=== PATIENT | female | born 1945 | race Caucasian/White ===

== ENCOUNTER → 2016-07-05 | Outpatient (CLI) | payer MEDICARE, BC ==
[2016-07-05 19:54] LABS: FREE T4 1.04 NG/DL (0.76-1.46)
[2016-07-05 20:00] LABS: FOLATE > 24.0 NG/ML (>5.4); VITAMIN B12 LEVEL 647 PG/ML (247-911)
== END ==
LOC: M WUC 17:07
PROVIDERS: ATTEND Family Medicine
DX: R41.3 Other amnesia (principal); R25.2 Cramp and spasm

== ENCOUNTER → 2016-09-03 | Outpatient (REF) | payer MEDICARE, BC | LOC: M LAB REF 18:09 | PROVIDERS: ATTEND Physician Assistant | DX: R30.0 Dysuria (principal) ==

== ENCOUNTER → 2016-09-07 | Outpatient (CLI) | payer MEDICARE, BC ==
[2016-09-07 20:57] LABS: CALCIUM LEVEL 10.2 MG/DL (8.8-10.2); CREATININE FOR GFR 1.73 MG/DL (0.55-1.02); GLOMERULAR FILTRATION RATE 30.7 (>39)
== END ==
LOC: M WUC 18:27
PROVIDERS: ATTEND Internal Medicine Cardiovascular Disease
DX: I48.0 Paroxysmal atrial fibrillation (principal); I10 Essential (primary) hypertension

== ENCOUNTER → 2016-10-13 | Outpatient (REF) | payer MEDICARE, BC ==
[2016-10-13 19:37] LABS: MEAN CORPUSCULAR HEMOGLOBIN 31.6 pg (27.0-33.0); MEAN CORPUSCULAR HGB CONC 33.2 g/dl (32.0-36.5); RED CELL DISTRIBUTION WIDTH 12.5 % (11.5-14.5); WHITE BLOOD COUNT 3.6 K/mm3 (4.0-10.0)
[2016-10-13 19:58] LABS: ALBUMIN 3.8 GM/DL (3.2-5.2); ALBUMIN/GLOBULIN RATIO 1.41 (1.00-1.93); BILIRUBIN,TOTAL 0.8 MG/DL (0.2-1.0); CALCIUM LEVEL 9.2 MG/DL (8.8-10.2); CREATININE FOR GFR 1.43 MG/DL (0.55-1.02); GLOMERULAR FILTRATION RATE 38.3 (>39); POTASSIUM SERUM 4.7 MEQ/L (3.5-5.1); TOTAL PROTEIN 6.5 GM/DL (6.4-8.2)
== END ==
LOC: M SFHCADAM 16:03
PROVIDERS: ATTEND Family Medicine
DX: N18.3 Chronic kidney disease, stage 3 (moderate) (principal); E78.4 Other hyperlipidemia
CPT/HCPCS: 80053; 80061; 82306; 85027; G0463

== ENCOUNTER → 2017-12-13 | Outpatient (CLI) | payer MEDICARE, BC ==
[2017-12-13 17:04] LABS: HEMATOCRIT 40.9 % (36.0-47.0); HEMOGLOBIN 13.4 g/dl (12.0-15.5); MEAN CORPUSCULAR HEMOGLOBIN 30.1 pg (27.0-33.0); MEAN CORPUSCULAR HGB CONC 32.8 g/dl (32.0-36.5); MEAN CORPUSCULAR VOLUME 91.9 fl (80.0-96.0); PLATELET COUNT, AUTOMATED 140 10^3/uL (150-450); RED BLOOD COUNT 4.45 10^6/uL (4.00-5.40); RED CELL DISTRIBUTION WIDTH 12.6 % (11.5-14.5); WHITE BLOOD COUNT 3.5 10^3/uL (4.0-10.0)
[2017-12-13 17:10] LABS: ALBUMIN 3.8 GM/DL (3.2-5.2); ALBUMIN/GLOBULIN RATIO 1.31 (1.00-1.93); ALKALINE PHOSPHATASE 64 U/L (45-117); ALT/SGPT 40 U/L (12-78); ANION GAP 7 MEQ/L (8-16); AST/SGOT 41 U/L (7-37); BILIRUBIN,TOTAL 0.9 MG/DL (0.2-1.0); BLOOD UREA NITROGEN 22 MG/DL (7-18); CALCIUM LEVEL 9.1 MG/DL (8.8-10.2); CARBON DIOXIDE LEVEL 32 MEQ/L (21-32); CHLORIDE LEVEL 106 MEQ/L (98-107); CHOLESTEROL LEVEL 161 MG/DL (<200); CHOLESTEROL RISK RATIO 1.477 (<5); CREATININE FOR GFR 1.64 MG/DL (0.55-1.30); FREE T4 1.04 NG/DL (0.76-1.46); GLOMERULAR FILTRATION RATE 32.6 (>39); GLUCOSE, FASTING 85 MG/DL (70-100); HDL CHOLESTEROL 109 MG/DL (>40); LDL CHOLESTEROL 43.2 MG/DL (<100); NON-HDL-C 52 MG/DL; SODIUM LEVEL 145 MEQ/L (136-145); TOTAL PROTEIN 6.7 GM/DL (6.4-8.2); TRIGLYCERIDES LEVEL 44 MG/DL (<150)
== END ==
LOC: M LAB 15:20
DX: F32.9 Major depressive disorder, single episode, unspecified (principal); E78.4 Other hyperlipidemia; N18.3 Chronic kidney disease, stage 3 (moderate)
CPT/HCPCS: 84443

== ENCOUNTER → 2018-10-10 | Outpatient (CLI) | payer MEDICARE, BC ==
[2018-10-10 20:18] LABS: ALBUMIN 4.2 GM/DL (3.2-5.2); BILIRUBIN,TOTAL 0.7 MG/DL (0.2-1.0); CALCIUM LEVEL 9.8 MG/DL (8.8-10.2); CHOLESTEROL RISK RATIO 1.729 (<5); CREATININE FOR GFR 1.6 MG/DL (0.55-1.30); FREE T4 1.11 NG/DL (0.76-1.46); GLOMERULAR FILTRATION RATE 33.5 (>39); POTASSIUM SERUM 4.8 MEQ/L (3.5-5.1); THYROID STIMULATING HORMONE 1.78 uIU/ML (0.358-3.740); TOTAL PROTEIN 6.7 GM/DL (6.4-8.2)
[2018-10-10 20:24] LABS: HEMATOCRIT 42.5 % (36.0-47.0); MEAN CORPUSCULAR HEMOGLOBIN 31.4 pg (27.0-33.0); MEAN CORPUSCULAR HGB CONC 32.9 g/dl (32.0-36.5); MEAN CORPUSCULAR VOLUME 95.3 fl (80.0-96.0); PLATELET COUNT, AUTOMATED 160 10^3/uL (150-450); RED BLOOD COUNT 4.46 10^6/uL (4.00-5.40); WHITE BLOOD COUNT 4.6 10^3/uL (4.0-10.0)
== END ==
LOC: M WUC 17:34
PROVIDERS: ATTEND Family Medicine
DX: N18.3 Chronic kidney disease, stage 3 (moderate) (principal); I48.0 Paroxysmal atrial fibrillation; I25.10 Atherosclerotic heart disease of native coronary artery without angina pectoris

== ENCOUNTER 2019-01-02 11:24 | Day surgery (SDC) | payer MEDICARE, BC ==
[~2019-01-02] VITALS: Ht 162.6 cm; Wt 51.9 kg
[~2019-01-02 11:24] MED LIST: AMLO5TAB6 PO; BIOT1CAP2 PO; CALCCAP4 PO; COQ-100C5 PO; CORE10CA PO; LOSA50TA88 PO; MULTCAP PO; NITR0.4S14 SL; NS 1,000 ML IV ONE; SERT-138 PO; SIMV40TA2 PO; TRAZ-189 PO; XARE10TA PO
[2019-01-02] MEDS ORDERED: LABETALOL HCL 100 MG/20 ML VIAL As Ordered ONE (12:41)
[2019-01-02] MEDS ORDERED: PROPOFOL 200 MG/20 ML VIAL As Ordered ONE (12:41)
--- NOTE | 2019-01-02 13:01 | ROOR ---
Patient Name: Katja Mcghee Procedure Date: 01/02/2019 12:29 PM Date of : 1945 Age: 73 Room: [facility] [place] Gender: Female Note Status: Finalized Procedure: Total Colonoscopy to Cecum + Cold Snare/Biopsy Polypectomy + Hemoclip Indications: High risk colon cancer surveillance: Personal history of colonic polyps Providers: Mahendra Ross MD Referring MD: Rodger Nava MD Requesting Provider: Medicines: Monitored Anesthesia Care Complications: No immediate complications. Procedure: Pre-Anesthesia Assessment: - The heart rate, respiratory rate, oxygen saturations, blood pressure, adequacy of pulmonary ventilation, and response to care were monitored throughout the procedure. The Colonoscope was introduced through the anus and advanced to the cecum, identified by appendiceal orifice and ileocecal valve. The colonoscopy was performed without difficulty. The patient tolerated the procedure well. The quality of the bowel preparation was good. Findings: The perianal and digital rectal examinations were normal. Non-bleeding internal hemorrhoids were found during retroflexion. The hemorrhoids were small and Grade I (internal hemorrhoids that do not prolapse). Multiple small and large-mouthed diverticula were found in the recto-sigmoid colon, sigmoid colon and descending colon. Multiple sessile polyps were found in the ascending colon. The polyps were small in size. These polyps were removed with a jumbo cold forceps. Resection and retrieval were complete. Multiple sessile polyps were found at 60 cm proximal to the anus. The polyps were small in size. These polyps were removed with a jumbo cold forceps. Resection and retrieval were complete. A small polyp was found at 20 cm proximal to the anus. The polyp was sessile. The polyp was removed with a cold snare. Resection and retrieval were complete. To prevent bleeding post-intervention, one hemostatic clip was successfully placed (MR conditional). There was no bleeding at the end of the procedure. The exam was otherwise without abnormality on direct and retroflexion views. Impression: - Non-bleeding internal hemorrhoids. - Diverticulosis in the recto-sigmoid colon, in the sigmoid colon and in the descending colon. - Multiple small polyps in the ascending colon, removed with a jumbo cold forceps. Resected and retrieved. - Multiple small polyps at 60 cm proximal to the anus, removed with a jumbo cold forceps. Resected and retrieved. - One small polyp at 20 cm proximal to the anus, removed with a cold snare. Resected and retrieved. Clip (MR conditional) was placed. - The examination was otherwise normal on direct and retroflexion views. - The exam was otherwise normal to the cecum. Recommendation: - Patient has a contact number available for emergencies. The signs and symptoms of potential delayed complications were discussed with the patient. Return to normal activities tomorrow. Written discharge instructions were provided to the patient. - High fiber diet. - Discharge patient to home. - Continue present medications. - Await pathology results. - Telephone GI clinic for pathology results in 1 week. - Repeat colonoscopy for symptoms only. - Return to referring physician. - The findings and recommendations were discussed with the patient's family. Mahendra Ross MD Mahendra Ross MD 01/02/2019 1:00:58 PM Electronically signed by Mahendra Ross MD Number of Addenda: 0 Note Initiated On: 01/02/2019 12:29 PM Estimated Blood Loss: Estimated blood loss: none.
[2019-01-02 13:36] VITALS: BP 110/71
== END 2019-01-02 13:37 | disposition home or self-care (01) ==
LOC: M OPP 11:24
PROVIDERS: ATTEND Internal Medicine Gastroenterology
DX: Z12.11 Encounter for screening for malignant neoplasm of colon (principal); Z86.010 Personal history of colon polyps; K64.0 First degree hemorrhoids; D12.2 Benign neoplasm of ascending colon; K57.30 Diverticulosis of large intestine without perforation or abscess without bleeding; K63.5 Polyp of colon; I48.91 Unspecified atrial fibrillation; I25.2 Old myocardial infarction; Z79.899 Other long term (current) drug therapy; Z88.8 Allergy status to other drugs, medicaments and biological substances; Z95.5 Presence of coronary angioplasty implant and graft

== ENCOUNTER → 2019-03-16 | Outpatient (CLI) | payer MEDICARE, BC ==
[~2019-03-16] MED LIST changes: -NS 1,000 ML IV ONE
[2019-03-16 17:51] LABS: CALCIUM LEVEL 8.9 MG/DL (8.8-10.2); CREATININE FOR GFR 1.57 MG/DL (0.55-1.30); GLOMERULAR FILTRATION RATE 34.2 (>39); POTASSIUM SERUM 4.2 MEQ/L (3.5-5.1)
[2019-03-16 18:08] LABS: HEMOGLOBIN A1c 5.6 %
== END ==
LOC: M WUC 15:37
PROVIDERS: ATTEND Family Medicine
DX: R73.9 Hyperglycemia, unspecified (principal)

== ENCOUNTER → 2019-10-17 | Outpatient (REF) | payer MEDICARE, BC ==
[~2019-10-17] MED LIST changes: -SIMV40TA2 PO; +SIMV40TA20 PO
[2019-10-17 17:42] LABS: HEMATOCRIT 41.2 % (36.0-47.0); HEMOGLOBIN 13.6 g/dl (12.0-15.5); MEAN CORPUSCULAR HEMOGLOBIN 30.9 pg (27.0-33.0); MEAN CORPUSCULAR VOLUME 93.6 fl (80.0-96.0); PLATELET COUNT, AUTOMATED 142 10^3/uL (150-450); WHITE BLOOD COUNT 5.4 10^3/uL (4.0-10.0)
[2019-10-17 18:03] LABS: BILIRUBIN,TOTAL 0.6 MG/DL (0.2-1.0); CALCIUM LEVEL 9.5 MG/DL (8.8-10.2); CHOLESTEROL RISK RATIO 1.69 (<5); CREATININE FOR GFR 1.31 MG/DL (0.55-1.30); POTASSIUM SERUM 4.4 MEQ/L (3.5-5.1); TOTAL PROTEIN 6.8 GM/DL (6.4-8.2)
[2019-10-17 18:31] LABS: HEMOGLOBIN A1c 5.7 %
== END ==
LOC: M SFHCADAM 16:38
PROVIDERS: ATTEND Family Medicine
DX: R73.03 Prediabetes (principal); I48.0 Paroxysmal atrial fibrillation; N18.3 Chronic kidney disease, stage 3 (moderate); F32.9 Major depressive disorder, single episode, unspecified; I11.9 Hypertensive heart disease without heart failure; I25.10 Atherosclerotic heart disease of native coronary artery without angina pectoris

== ENCOUNTER 2019-12-22 20:30 | Emergency (ER) | payer MEDICARE, BC ==
[~2019-12-22 20:30] MED LIST changes: +AMLO1TAB24 PO; -AMLO5TAB6 PO; +LIDOCAINE 4% CREAM 5GM (LMX4) As Ordered ONE; +LIDOCAINE 4% CREAM 5GM (LMX4) ONE
== END 2019-12-22 21:05 | disposition home or self-care (01) ==
LOC: M ED 20:30
DX: S49.91XA Unspecified injury of right shoulder and upper arm, initial encounter (principal); W01.0XXA Fall on same level from slipping, tripping and stumbling without subsequent striking against object, initial encounter; Y92.019 Unspecified place in single-family (private) house as the place of occurrence of the external cause; I12.9 Hypertensive chronic kidney disease with stage 1 through stage 4 chronic kidney disease, or unspecified chronic kidney disease; E78.5 Hyperlipidemia, unspecified; Z88.8 Allergy status to other drugs, medicaments and biological substances; Z79.899 Other long term (current) drug therapy

== ENCOUNTER → 2020-10-12 | Outpatient (CLI) | payer MEDICARE, BC ==
[~2020-10-12] MED LIST changes: -LIDOCAINE 4% CREAM 5GM (LMX4) As Ordered ONE; -LIDOCAINE 4% CREAM 5GM (LMX4) ONE
[2020-10-12 15:50] LABS: HEMATOCRIT 39.9 % (36.0-47.0); HEMOGLOBIN 12.8 g/dl (12.0-15.5); MEAN CORPUSCULAR HEMOGLOBIN 30.5 pg (27.0-33.0); MEAN CORPUSCULAR HGB CONC 32.1 g/dl (32.0-36.5); PLATELET COUNT, AUTOMATED 127 10^3/uL (150-450); WHITE BLOOD COUNT 3.9 10^3/uL (4.0-10.0)
[2020-10-12 16:27] LABS: ALBUMIN 3.6 GM/DL (3.2-5.2); BILIRUBIN,TOTAL 0.7 MG/DL (0.2-1.0); CALCIUM LEVEL 8.8 MG/DL (8.8-10.2); CHOLESTEROL RISK RATIO 1.591 (<5); CREATININE FOR GFR 1.17 MG/DL (0.55-1.30); FREE T4 0.95 NG/DL (0.76-1.46); GLOMERULAR FILTRATION RATE 47.7 (>39); POTASSIUM SERUM 4.5 MEQ/L (3.5-5.1); THYROID STIMULATING HORMONE 0.993 uIU/ML (0.358-3.740); TOTAL PROTEIN 6.1 GM/DL (6.4-8.2)
== END ==
LOC: M LAB 15:28
PROVIDERS: ATTEND Family Medicine
DX: I48.0 Paroxysmal atrial fibrillation (principal); F43.23 Adjustment disorder with mixed anxiety and depressed mood; N18.32 Chronic kidney disease, stage 3b; E78.49 Other hyperlipidemia; I11.9 Hypertensive heart disease without heart failure

== ENCOUNTER → 2021-01-22 | Outpatient (REF) | payer MEDICARE, BC | LOC: M SFHCADAM 16:12 | PROVIDERS: ATTEND Family Medicine | DX: J34.89 Other specified disorders of nose and nasal sinuses (principal) | CPT/HCPCS: 87426; G0463; U0003 ==

== ENCOUNTER → 2021-03-26 | Outpatient (REF) | payer MEDICARE, BC | LOC: M LAB REF 17:12 | PROVIDERS: ATTEND Nurse Practitioner Family | DX: E83.42 Hypomagnesemia (principal) ==

== ENCOUNTER → 2021-11-18 | Outpatient (REF) | payer MEDICARE, BC ==
[~2021-11-18] MED LIST changes: +LOSA50TA28 PO; -LOSA50TA88 PO
[2021-11-18 13:38] LABS: HEMATOCRIT 44.6 % (36.0-47.0); HEMOGLOBIN 15.4 g/dl (12.0-15.5); MEAN CORPUSCULAR HEMOGLOBIN 33.6 pg (27.0-33.0); MEAN CORPUSCULAR HGB CONC 34.5 g/dl (32.0-36.5); MEAN CORPUSCULAR VOLUME 97.2 fl (80.0-96.0); PLATELET COUNT, AUTOMATED 181 10^3/uL (150-450); RED BLOOD COUNT 4.59 10^6/uL (4.00-5.40); WHITE BLOOD COUNT 6.8 10^3/uL (4.0-10.0)
[2021-11-18 14:10] LABS: ALBUMIN 4.1 GM/DL (3.2-5.2); BILIRUBIN,TOTAL 1.1 MG/DL (0.2-1.0); CALCIUM LEVEL 10.1 MG/DL (8.8-10.2); CHOLESTEROL RISK RATIO 2.161 (<5); CREATININE FOR GFR 1.45 MG/DL (0.55-1.30); FREE T4 1.12 NG/DL (0.76-1.46); GLOMERULAR FILTRATION RATE 37.2 (>39); POTASSIUM SERUM 4.3 MEQ/L (3.5-5.1); THYROID STIMULATING HORMONE 1.65 uIU/ML (0.358-3.740); TOTAL PROTEIN 6.8 GM/DL (6.4-8.2)
== END ==
LOC: M SFHCADAM 12:26 → M LABWUC 12:26
PROVIDERS: ATTEND Family Medicine
DX: I11.9 Hypertensive heart disease without heart failure (principal); F43.23 Adjustment disorder with mixed anxiety and depressed mood; I25.10 Atherosclerotic heart disease of native coronary artery without angina pectoris; I48.0 Paroxysmal atrial fibrillation; N18.32 Chronic kidney disease, stage 3b; E78.49 Other hyperlipidemia

== ENCOUNTER → 2021-12-07 | Outpatient (CLI) | payer MEDICARE, BC ==
[2021-12-07 14:59] LABS: FOLATE 18.1 NG/ML
== END ==
LOC: M PLAIMG 09:34
PROVIDERS: ATTEND Family Medicine
DX: R53.1 Weakness (principal); N18.32 Chronic kidney disease, stage 3b; R90.82 White matter disease, unspecified; G31.9 Degenerative disease of nervous system, unspecified

== ENCOUNTER → 2022-06-03 | Outpatient (REF) | payer MEDICARE, BC ==
[2022-06-03 17:59] LABS: HEMATOCRIT 41.9 % (36.0-47.0); HEMOGLOBIN 13.9 g/dl (12.0-15.5); MEAN CORPUSCULAR HEMOGLOBIN 32.1 pg (27.0-33.0); MEAN CORPUSCULAR HGB CONC 33.2 g/dl (32.0-36.5); MEAN CORPUSCULAR VOLUME 96.8 fl (80.0-96.0); PLATELET COUNT, AUTOMATED 159 10^3/uL (150-450); RED BLOOD COUNT 4.33 10^6/uL (4.00-5.40); WHITE BLOOD COUNT 3.3 10^3/uL (4.0-10.0)
[2022-06-03 18:24] LABS: CALCIUM LEVEL 9.1 MG/DL (8.3-10.6); CREATININE FOR GFR 1.09 MG/DL (0.55-1.30); GLOMERULAR FILTRATION RATE 51.7 (>39); POTASSIUM SERUM 4.7 MMOL/L (3.5-5.1)
== END ==
LOC: M LABWUC 16:13
PROVIDERS: ATTEND Nurse Practitioner Family
DX: I48.0 Paroxysmal atrial fibrillation (principal)

== ENCOUNTER → 2022-08-24 | Outpatient (CLI) | payer MEDICARE, BC | LOC: M ADAMS 15:09 | PROVIDERS: ATTEND Physician Assistant | DX: M16.11 Unilateral primary osteoarthritis, right hip (principal); M41.26 Other idiopathic scoliosis, lumbar region; M41.24 Other idiopathic scoliosis, thoracic region; R06.09 Other forms of dyspnea ==

== ENCOUNTER → 2022-09-23 | Outpatient (CLI) | payer MEDICARE, BC | LOC: M WHC 13:35 | PROVIDERS: ATTEND Physician Assistant | DX: M81.0 Age-related osteoporosis without current pathological fracture (principal) ==

== ENCOUNTER 2022-10-21 00:36 | Emergency (ER) | payer MEDICARE, BC ==
[~2022-10-21] VITALS: Ht 165.1 cm; Wt 50.2 kg
[2022-10-21 00:37] VITALS: BP 146/90; TEMP 98.1; O2SAT 95
== END 2022-10-21 04:47 | disposition home or self-care (01) ==
LOC: M ED 00:36
DX: S52.501A Unspecified fracture of the lower end of right radius, initial encounter for closed fracture (principal); W19.XXXA Unspecified fall, initial encounter; Y92.009 Unspecified place in unspecified non-institutional (private) residence as the place of occurrence of the external cause; Z79.899 Other long term (current) drug therapy; Z88.8 Allergy status to other drugs, medicaments and biological substances

== ENCOUNTER → 2022-12-07 | Outpatient (CLI) | payer MEDICARE, BC ==
[2022-12-07 12:43] LABS: HEMOGLOBIN 13.7 g/dl (12.0-15.5); MEAN CORPUSCULAR HEMOGLOBIN 33.8 pg (27.0-33.0); MEAN CORPUSCULAR HGB CONC 35.1 g/dl (32.0-36.5); MEAN CORPUSCULAR VOLUME 96.3 fl (80.0-96.0); PLATELET COUNT, AUTOMATED 147 10^3/uL (150-450); RED BLOOD COUNT 4.05 10^6/uL (4.00-5.40); WHITE BLOOD COUNT 5.1 10^3/uL (4.0-10.0)
[2022-12-07 13:10] LABS: ALBUMIN 3.7 G/DL (3.2-5.2); BILIRUBIN,TOTAL 1.2 MG/DL (0.3-1.2); CALCIUM LEVEL 9.4 MG/DL (8.3-10.6); CHOLESTEROL RISK RATIO 2.27 (<5); CREATININE FOR GFR 1.2 MG/DL (0.55-1.30); GLOMERULAR FILTRATION RATE 46.1 (>39); HDL CHOLESTEROL 69.5 MG/DL (>40); LDL CHOLESTEROL 71.7 MG/DL (<100); NON-HDL-C 88.5 MG/DL; POTASSIUM SERUM 4.6 MMOL/L (3.5-5.1); PTH INTACT 87.1 PG/ML (18.5-88.0); THYROID STIMULATING HORMONE 0.918 uIU/ML (0.55-4.78); TOTAL PROTEIN 6.1 G/DL (5.7-8.2)
[2022-12-07 13:11] LABS: TOTAL 25(OH) VITAMIN D 41.6 NG/ML (20.0-100.0)
== END ==
LOC: M WUC 09:18
PROVIDERS: ATTEND Family Medicine
DX: J20.9 Acute bronchitis, unspecified (principal); N18.32 Chronic kidney disease, stage 3b; I25.10 Atherosclerotic heart disease of native coronary artery without angina pectoris; M81.0 Age-related osteoporosis without current pathological fracture; I48.0 Paroxysmal atrial fibrillation

== ENCOUNTER 2023-02-09 15:26 | Inpatient (IN) | payer MEDICARE, BC ==
[~2023-02-09] VITALS: Ht 154.9 cm; Wt 52.7 kg
[~2023-02-09 15:26] MED LIST changes: +BUSP15TA47 PO; +HYDR25OI TOP; +UBIQ200C4 PO; +VITMTA PO; +ZOLO100T PO
[2023-02-09] MEDS ORDERED: oxyCODONE 5MG TAB PO PRN ×2 (15:50)
[2023-02-09] MEDS ORDERED: NITROGLYCERIN 0.4MG SUBL TABLET SL PRN (15:50)
[2023-02-09 16:07] VITALS: BP 98/56; TEMP 98; O2SAT 92
[2023-02-09] MEDS: ACETAMINOPHEN TAB 650MG DOSE (2X325MG) PO SCH (17:48)
[2023-02-09 19:20] VITALS: BP 129/59; TEMP 98.4; O2SAT 94
[2023-02-09] MEDS: traZODone 50 MG TAB PO SCH (21:00)
[2023-02-09] MEDS: SENNA 8.6 MG TAB (SENOKOT) PO SCH (21:13)
[2023-02-09] MEDS: CARVedilol 3.125 MG TAB PO SCH (21:13)
[2023-02-10] MEDS: ACETAMINOPHEN TAB 650MG DOSE (2X325MG) PO SCH ×4 (05:25→17:33)
[2023-02-10 06:00] VITALS: BP 107/61; TEMP 98.5; O2SAT 96
[2023-02-10 07:34] LABS: HEMATOCRIT 38.3 % (36.0-47.0); HEMOGLOBIN 12.5 g/dl (12.0-15.5); MEAN CORPUSCULAR HEMOGLOBIN 30.4 pg (27.0-33.0); MEAN CORPUSCULAR HGB CONC 32.6 g/dl (32.0-36.5); MEAN CORPUSCULAR VOLUME 93.2 fl (80.0-96.0); PLATELET COUNT, AUTOMATED 82 10^3/uL (150-450); RED BLOOD COUNT 4.11 10^6/uL (4.00-5.40); WHITE BLOOD COUNT 7.9 10^3/uL (4.0-10.0)
[2023-02-10] MEDS: MIRALAX *UNIT DOSE* 17GM PACKET PO SCH (09:00)
[2023-02-10] MEDS ORDERED: SIMVASTATIN 40 MG TAB PO SCH (09:00)
[2023-02-10] MEDS: SERTRALINE 100 MG TAB PO SCH (10:16)
[2023-02-10] MEDS: MULTIVITAMINS/MINERALS THERAP 1 TAB PO SCH (10:16)
[2023-02-10] MEDS: busPIRone 5 MG TAB PO SCH (10:17)
[2023-02-10] MEDS: CARVedilol 3.125 MG TAB PO SCH ×2 (10:17→21:00)
[2023-02-10] MEDS: amLODIPine 5 MG TAB PO SCH (10:18)
[2023-02-10 14:00] VITALS: BP 96/51; TEMP 99; O2SAT 97
[2023-02-10] MEDS ORDERED: methocarbamoL 500 MG TAB PO SCH (16:00)
[2023-02-10] MEDS: RIVAROXABAN 15MG TAB (XARELTO) PO SCH (17:30)
[2023-02-10] MEDS: guaiFENesin ER TABLET 600 MG TAB PO SCH ×2 (17:30→20:49)
[2023-02-10] MEDS: CYCLOBENZAPRINE 5MG TABLET PO SCH ×2 (17:31→20:49)
[2023-02-10 17:56] VITALS: O2SAT 97
[2023-02-10 20:00] VITALS: BP 109/57; TEMP 97.2; O2SAT 97
[2023-02-10] MEDS: SENNA 8.6 MG TAB (SENOKOT) PO SCH (20:49)
[2023-02-10] MEDS: traZODone 50 MG TAB PO SCH (21:00)
[2023-02-11] MEDS: ACETAMINOPHEN TAB 650MG DOSE (2X325MG) PO SCH ×4 (05:31→17:29)
[2023-02-11 06:00] VITALS: BP 141/67; TEMP 98.1; O2SAT 99
[2023-02-11] MEDS: SERTRALINE 100 MG TAB PO SCH (07:38)
[2023-02-11] MEDS: busPIRone 5 MG TAB PO SCH (07:39)
[2023-02-11] MEDS: guaiFENesin ER TABLET 600 MG TAB PO SCH ×2 (07:39→20:32)
[2023-02-11] MEDS: CYCLOBENZAPRINE 5MG TABLET PO SCH ×3 (07:39→20:31)
[2023-02-11] MEDS: MULTIVITAMINS/MINERALS THERAP 1 TAB PO SCH (07:39)
[2023-02-11] MEDS: MIRALAX *UNIT DOSE* 17GM PACKET PO SCH (07:40)
[2023-02-11] MEDS: CARVedilol 3.125 MG TAB PO SCH ×2 (07:40→20:32)
[2023-02-11] MEDS: amLODIPine 5 MG TAB PO SCH (07:40)
[2023-02-11 08:05] LABS: HEMATOCRIT 34.4 % (36.0-47.0); HEMOGLOBIN 11.5 g/dl (12.0-15.5); MEAN CORPUSCULAR HEMOGLOBIN 32.4 pg (27.0-33.0); MEAN CORPUSCULAR HGB CONC 33.4 g/dl (32.0-36.5); MEAN CORPUSCULAR VOLUME 96.9 fl (80.0-96.0); RED BLOOD COUNT 3.55 10^6/uL (4.00-5.40); WHITE BLOOD COUNT 5.9 10^3/uL (4.0-10.0)
[2023-02-11 08:11] LABS: PLATELET COUNT, AUTOMATED 87 10^3/uL (150-450)
[2023-02-11 08:25] LABS: BLOOD UREA NITROGEN 29 MG/DL (9-23); CALCIUM LEVEL 7.9 MG/DL (8.3-10.6); CARBON DIOXIDE LEVEL 31 MMOL/L (20-31); CHLORIDE LEVEL 105 MMOL/L (98-107); CREATININE FOR GFR 0.93 MG/DL (0.55-1.30); GLOMERULAR FILTRATION RATE > 60.0 (>39); GLUCOSE, FASTING 88 MG/DL (74-106); POTASSIUM SERUM 4.2 MMOL/L (3.5-5.1); SODIUM LEVEL 141 MMOL/L (136-145)
[2023-02-11] MEDS: RIVAROXABAN 15MG TAB (XARELTO) PO SCH (17:29)
[2023-02-11 20:00] VITALS: BP 122/65; TEMP 98.7; O2SAT 93
[2023-02-11] MEDS: traZODone 50 MG TAB PO SCH (20:31)
[2023-02-11] MEDS: SENNA 8.6 MG TAB (SENOKOT) PO SCH (20:31)
[2023-02-11] MEDS: SIMVASTATIN 40 MG TAB PO SCH (20:31)
[2023-02-12 06:00] VITALS: BP 129/66; TEMP 98.3; O2SAT 100
[2023-02-12] MEDS: ACETAMINOPHEN TAB 650MG DOSE (2X325MG) PO SCH ×4 (06:00→17:14)
[2023-02-12] MEDS: busPIRone 5 MG TAB PO SCH (08:18)
[2023-02-12] MEDS: MULTIVITAMINS/MINERALS THERAP 1 TAB PO SCH (08:18)
[2023-02-12] MEDS: CARVedilol 3.125 MG TAB PO SCH ×2 (08:18→20:52)
[2023-02-12] MEDS: guaiFENesin ER TABLET 600 MG TAB PO SCH ×2 (08:18→20:52)
[2023-02-12] MEDS: SERTRALINE 100 MG TAB PO SCH (08:18)
[2023-02-12] MEDS: amLODIPine 5 MG TAB PO SCH (08:19)
[2023-02-12] MEDS: MIRALAX *UNIT DOSE* 17GM PACKET PO SCH (08:19)
[2023-02-12] MEDS: CYCLOBENZAPRINE 5MG TABLET PO SCH ×3 (08:19→20:50)
[2023-02-12 14:00] VITALS: BP 129/69; TEMP 98.9; O2SAT 96
[2023-02-12] MEDS: RIVAROXABAN 15MG TAB (XARELTO) PO SCH (17:14)
[2023-02-12 20:00] VITALS: BP 118/74; TEMP 98.5; O2SAT 98
[2023-02-12] MEDS: SENNA 8.6 MG TAB (SENOKOT) PO SCH (20:50)
[2023-02-12] MEDS: SIMVASTATIN 40 MG TAB PO SCH (20:51)
[2023-02-12] MEDS: traZODone 50 MG TAB PO SCH (20:52)
[2023-02-13 06:00] VITALS: BP 140/73; TEMP 97.8; O2SAT 98
[2023-02-13] MEDS: ACETAMINOPHEN TAB 650MG DOSE (2X325MG) PO SCH ×4 (06:00→17:46)
[2023-02-13 06:15] LABS: HEMOGLOBIN 11.2 g/dl (12.0-15.5); MEAN CORPUSCULAR HEMOGLOBIN 32.4 pg (27.0-33.0); MEAN CORPUSCULAR HGB CONC 32.9 g/dl (32.0-36.5); MEAN CORPUSCULAR VOLUME 98.3 fl (80.0-96.0); PLATELET COUNT, AUTOMATED 122 10^3/uL (150-450); RED BLOOD COUNT 3.46 10^6/uL (4.00-5.40); WHITE BLOOD COUNT 4.3 10^3/uL (4.0-10.0)
[2023-02-13 06:45] LABS: BLOOD UREA NITROGEN 25 MG/DL (9-23); CALCIUM LEVEL 8.7 MG/DL (8.3-10.6); CARBON DIOXIDE LEVEL 30 MMOL/L (20-31); CHLORIDE LEVEL 104 MMOL/L (98-107); CREATININE FOR GFR 0.93 MG/DL (0.55-1.30); GLOMERULAR FILTRATION RATE > 60.0 (>39); GLUCOSE, FASTING 91 MG/DL (74-106); POTASSIUM SERUM 5.2 MMOL/L (3.5-5.1); SODIUM LEVEL 139 MMOL/L (136-145)
[2023-02-13] MEDS: CYCLOBENZAPRINE 5MG TABLET PO SCH ×3 (07:33→20:46)
[2023-02-13] MEDS: amLODIPine 5 MG TAB PO SCH (07:33)
[2023-02-13] MEDS: MULTIVITAMINS/MINERALS THERAP 1 TAB PO SCH (07:33)
[2023-02-13] MEDS: SERTRALINE 100 MG TAB PO SCH (07:33)
[2023-02-13] MEDS: busPIRone 5 MG TAB PO SCH (07:33)
[2023-02-13] MEDS: guaiFENesin ER TABLET 600 MG TAB PO SCH ×2 (07:33→20:46)
[2023-02-13] MEDS: CARVedilol 3.125 MG TAB PO SCH ×2 (07:34→20:46)
[2023-02-13] MEDS: MIRALAX *UNIT DOSE* 17GM PACKET PO SCH (07:35)
[2023-02-13 14:00] VITALS: BP 142/69; TEMP 99; O2SAT 100
[2023-02-13] MEDS: RIVAROXABAN 15MG TAB (XARELTO) PO SCH (17:45)
[2023-02-13 19:32] VITALS: BP 143/65; TEMP 100; O2SAT 97
[2023-02-13] MEDS: traZODone 50 MG TAB PO SCH (20:46)
[2023-02-13] MEDS: SIMVASTATIN 40 MG TAB PO SCH (20:46)
[2023-02-13] MEDS: SENNA 8.6 MG TAB (SENOKOT) PO SCH (20:46)
[2023-02-13 21:00] VITALS: TEMP 98
[2023-02-14 05:12] VITALS: BP 152/88; TEMP 97.8; O2SAT 98
[2023-02-14] MEDS: ACETAMINOPHEN TAB 650MG DOSE (2X325MG) PO SCH ×4 (06:34→16:44)
[2023-02-14] MEDS: MIRALAX *UNIT DOSE* 17GM PACKET PO SCH (06:58)
[2023-02-14] MEDS: MULTIVITAMINS/MINERALS THERAP 1 TAB PO SCH (07:04)
[2023-02-14] MEDS: CYCLOBENZAPRINE 5MG TABLET PO SCH ×2 (07:04→16:43)
[2023-02-14] MEDS: guaiFENesin ER TABLET 600 MG TAB PO SCH ×2 (07:04→20:08)
[2023-02-14] MEDS: SERTRALINE 100 MG TAB PO SCH (07:04)
[2023-02-14] MEDS: amLODIPine 5 MG TAB PO SCH (07:04)
[2023-02-14] MEDS: CARVedilol 3.125 MG TAB PO SCH ×2 (07:04→20:08)
[2023-02-14] MEDS: busPIRone 5 MG TAB PO SCH (07:04)
[2023-02-14 14:00] VITALS: BP 135/85; TEMP 98.6; O2SAT 94
[2023-02-14] MEDS: RIVAROXABAN 15MG TAB (XARELTO) PO SCH (18:22)
[2023-02-14] MEDS ORDERED: LACTULOSE 20GM/30ML SYRUP UDC PO ONE (19:00)
[2023-02-14 20:00] VITALS: BP 118/68; TEMP 98.2; O2SAT 97
[2023-02-14] MEDS: traZODone 50 MG TAB PO SCH (20:07)
[2023-02-14] MEDS: SIMVASTATIN 40 MG TAB PO SCH (20:07)
[2023-02-14] MEDS: SENNA 8.6 MG TAB (SENOKOT) PO SCH (20:07)
[2023-02-14] MEDS: BACLOFEN 5MG PER 1/2 TABLET PO SCH (20:07)
[2023-02-15] MEDS: ACETAMINOPHEN TAB 650MG DOSE (2X325MG) PO SCH ×4 (05:27→18:13)
[2023-02-15 06:00] VITALS: BP 146/82; TEMP 98.7; O2SAT 95
[2023-02-15] MEDS: MIRALAX *UNIT DOSE* 17GM PACKET PO SCH (09:04)
[2023-02-15] MEDS: guaiFENesin ER TABLET 600 MG TAB PO SCH ×2 (09:06→20:20)
[2023-02-15] MEDS: MULTIVITAMINS/MINERALS THERAP 1 TAB PO SCH (09:06)
[2023-02-15] MEDS: busPIRone 5 MG TAB PO SCH (09:06)
[2023-02-15] MEDS: amLODIPine 5 MG TAB PO SCH (09:08)
[2023-02-15] MEDS: CARVedilol 3.125 MG TAB PO SCH ×2 (09:08→20:19)
[2023-02-15] MEDS: BACLOFEN 5MG PER 1/2 TABLET PO SCH ×2 (09:08→20:20)
[2023-02-15] MEDS: SERTRALINE 100 MG TAB PO SCH (09:08)
[2023-02-15 14:00] VITALS: BP 142/63; TEMP 98; O2SAT 100
[2023-02-15] MEDS: RIVAROXABAN 15MG TAB (XARELTO) PO SCH (18:12)
[2023-02-15 20:00] VITALS: BP 150/73; TEMP 98.3; O2SAT 97
[2023-02-15] MEDS: SENNA 8.6 MG TAB (SENOKOT) PO SCH (20:20)
[2023-02-15] MEDS: traZODone 50 MG TAB PO SCH (20:20)
[2023-02-15] MEDS: SIMVASTATIN 40 MG TAB PO SCH (20:20)
[2023-02-16 06:00] VITALS: BP 156/87; TEMP 97.2; O2SAT 92
[2023-02-16] MEDS: ACETAMINOPHEN TAB 650MG DOSE (2X325MG) PO SCH ×4 (06:39→18:10)
[2023-02-16 08:12] LABS: HEMATOCRIT 34.5 % (36.0-47.0); HEMOGLOBIN 11.9 g/dl (12.0-15.5); MEAN CORPUSCULAR HEMOGLOBIN 33.1 pg (27.0-33.0); MEAN CORPUSCULAR HGB CONC 34.5 g/dl (32.0-36.5); MEAN CORPUSCULAR VOLUME 96.1 fl (80.0-96.0); PLATELET COUNT, AUTOMATED 184 10^3/uL (150-450); RED BLOOD COUNT 3.59 10^6/uL (4.00-5.40); WHITE BLOOD COUNT 4.7 10^3/uL (4.0-10.0)
[2023-02-16 08:34] LABS: CREATININE FOR GFR 0.96 MG/DL (0.55-1.30); GLOMERULAR FILTRATION RATE 59.7 (>39); MAGNESIUM LEVEL 2.1 MG/DL (1.8-2.4); POTASSIUM SERUM 4.6 MMOL/L (3.5-5.1)
[2023-02-16] MEDS: guaiFENesin ER TABLET 600 MG TAB PO SCH (08:34)
[2023-02-16] MEDS: SERTRALINE 100 MG TAB PO SCH (08:34)
[2023-02-16] MEDS: MULTIVITAMINS/MINERALS THERAP 1 TAB PO SCH (08:34)
[2023-02-16] MEDS: MIRALAX *UNIT DOSE* 17GM PACKET PO SCH (08:34)
[2023-02-16] MEDS: BACLOFEN 5MG PER 1/2 TABLET PO SCH ×3 (08:36→20:21)
[2023-02-16] MEDS: busPIRone 5 MG TAB PO SCH (08:36)
[2023-02-16] MEDS: CARVedilol 3.125 MG TAB PO SCH ×2 (08:37→20:22)
[2023-02-16] MEDS: amLODIPine 5 MG TAB PO SCH (08:37)
[2023-02-16 14:00] VITALS: BP 121/67; TEMP 98.6; O2SAT 94
[2023-02-16] MEDS: RIVAROXABAN 15MG TAB (XARELTO) PO SCH (18:10)
[2023-02-16 20:00] VITALS: BP 134/74; TEMP 97.9; O2SAT 95
[2023-02-16] MEDS: traZODone 50 MG TAB PO SCH (20:21)
[2023-02-16] MEDS: SIMVASTATIN 40 MG TAB PO SCH (20:21)
[2023-02-16] MEDS: SENNA 8.6 MG TAB (SENOKOT) PO SCH (20:22)
[2023-02-17] MEDS: ACETAMINOPHEN TAB 650MG DOSE (2X325MG) PO SCH ×4 (05:27→17:14)
[2023-02-17 06:00] VITALS: BP 163/74; TEMP 96.8; O2SAT 94
[2023-02-17] MEDS ORDERED: BISACODYL 10MG SUPP PR PRN (09:45)
[2023-02-17] MEDS: MULTIVITAMINS/MINERALS THERAP 1 TAB PO SCH (10:40)
[2023-02-17] MEDS: MIRALAX *UNIT DOSE* 17GM PACKET PO SCH (10:40)
[2023-02-17] MEDS: BACLOFEN 5MG PER 1/2 TABLET PO SCH ×3 (10:40→20:48)
[2023-02-17] MEDS: SERTRALINE 100 MG TAB PO SCH (10:40)
[2023-02-17] MEDS: busPIRone 5 MG TAB PO SCH (10:41)
[2023-02-17] MEDS: amLODIPine 5 MG TAB PO SCH (10:41)
[2023-02-17] MEDS: CARVedilol 3.125 MG TAB PO SCH ×2 (10:42→20:47)
[2023-02-17 12:40] LABS: HEMATOCRIT 35.6 % (36.0-47.0); HEMOGLOBIN 11.5 g/dl (12.0-15.5); MEAN CORPUSCULAR HEMOGLOBIN 30.6 pg (27.0-33.0); MEAN CORPUSCULAR HGB CONC 32.3 g/dl (32.0-36.5); MEAN CORPUSCULAR VOLUME 94.7 fl (80.0-96.0); PLATELET COUNT, AUTOMATED 230 10^3/uL (150-450); RED BLOOD COUNT 3.76 10^6/uL (4.00-5.40); WHITE BLOOD COUNT 5.9 10^3/uL (4.0-10.0)
[2023-02-17 14:00] VITALS: BP 136/66; TEMP 96.7; O2SAT 95
[2023-02-17] MEDS: RIVAROXABAN 15MG TAB (XARELTO) PO SCH (17:14)
[2023-02-17 19:24] VITALS: BP 146/75; TEMP 98.6; O2SAT 95
[2023-02-17] MEDS: SENNA 8.6 MG TAB (SENOKOT) PO SCH (20:47)
[2023-02-17] MEDS: SIMVASTATIN 40 MG TAB PO SCH (20:47)
[2023-02-17] MEDS: traZODone 50 MG TAB PO SCH (20:48)
[2023-02-18 05:53] VITALS: BP 171/87; TEMP 98.3; O2SAT 92
[2023-02-18 06:00] VITALS: BP 164/92
[2023-02-18] MEDS: ACETAMINOPHEN TAB 650MG DOSE (2X325MG) PO SCH ×4 (06:00→17:01)
[2023-02-18] MEDS: CARVedilol 3.125 MG TAB PO SCH ×2 (06:17→20:38)
[2023-02-18] MEDS: amLODIPine 5 MG TAB PO SCH (06:17)
[2023-02-18 07:20] VITALS: BP 151/79
[2023-02-18 07:28] LABS: HEMATOCRIT 31.7 % (36.0-47.0); MEAN CORPUSCULAR HEMOGLOBIN 33.5 pg (27.0-33.0); MEAN CORPUSCULAR HGB CONC 34.7 g/dl (32.0-36.5); MEAN CORPUSCULAR VOLUME 96.6 fl (80.0-96.0); PLATELET COUNT, AUTOMATED 231 10^3/uL (150-450); RED BLOOD COUNT 3.28 10^6/uL (4.00-5.40)
[2023-02-18] MEDS: BACLOFEN 5MG PER 1/2 TABLET PO SCH ×3 (08:12→20:37)
[2023-02-18] MEDS: MULTIVITAMINS/MINERALS THERAP 1 TAB PO SCH (08:12)
[2023-02-18] MEDS: SERTRALINE 100 MG TAB PO SCH (08:12)
[2023-02-18] MEDS: busPIRone 5 MG TAB PO SCH (08:12)
[2023-02-18] MEDS: MIRALAX *UNIT DOSE* 17GM PACKET PO SCH (08:13)
[2023-02-18 14:00] VITALS: BP 118/60; TEMP 98.8; O2SAT 95
[2023-02-18] MEDS: RIVAROXABAN 15MG TAB (XARELTO) PO SCH (17:01)
[2023-02-18 19:55] VITALS: BP 159/76; TEMP 98.7; O2SAT 95
[2023-02-18] MEDS: traZODone 50 MG TAB PO SCH (20:37)
[2023-02-18] MEDS: SIMVASTATIN 40 MG TAB PO SCH (20:38)
[2023-02-18] MEDS: SENNA 8.6 MG TAB (SENOKOT) PO SCH (20:39)
[2023-02-19 05:45] VITALS: BP 158/80; TEMP 98.1; O2SAT 94
[2023-02-19] MEDS: ACETAMINOPHEN TAB 650MG DOSE (2X325MG) PO SCH ×4 (05:58→16:58)
[2023-02-19] MEDS: SERTRALINE 100 MG TAB PO SCH (07:19)
[2023-02-19] MEDS: CARVedilol 3.125 MG TAB PO SCH ×2 (07:19→20:13)
[2023-02-19] MEDS: BACLOFEN 5MG PER 1/2 TABLET PO SCH ×3 (07:20→20:13)
[2023-02-19] MEDS: busPIRone 5 MG TAB PO SCH (07:20)
[2023-02-19] MEDS: MULTIVITAMINS/MINERALS THERAP 1 TAB PO SCH (07:20)
[2023-02-19] MEDS: MIRALAX *UNIT DOSE* 17GM PACKET PO SCH (07:20)
[2023-02-19] MEDS: amLODIPine 5 MG TAB PO SCH (07:20)
[2023-02-19 10:10] LABS: PERCENT SATURATION 23.7 % (13.2-45.0)
[2023-02-19 10:12] LABS: FOLATE 19.42 NG/ML (>5.4)
[2023-02-19 14:00] VITALS: BP 151/72; TEMP 97.6; O2SAT 98
[2023-02-19] MEDS: RIVAROXABAN 15MG TAB (XARELTO) PO SCH (16:57)
[2023-02-19 20:00] VITALS: BP 145/73; TEMP 98.5; O2SAT 97
[2023-02-19] MEDS: SENNA 8.6 MG TAB (SENOKOT) PO SCH (20:12)
[2023-02-19] MEDS: SIMVASTATIN 40 MG TAB PO SCH (20:13)
[2023-02-19] MEDS: guaiFENesin ER TABLET 600 MG TAB PO PRN (20:13)
[2023-02-19] MEDS: traZODone 50 MG TAB PO SCH (20:13)
[2023-02-20] MEDS: ACETAMINOPHEN TAB 650MG DOSE (2X325MG) PO SCH ×4 (05:22→17:56)
[2023-02-20 06:00] VITALS: BP 155/78; TEMP 97.9; O2SAT 100
[2023-02-20] MEDS: SERTRALINE 100 MG TAB PO SCH (09:03)
[2023-02-20] MEDS: busPIRone 5 MG TAB PO SCH (09:03)
[2023-02-20] MEDS: BACLOFEN 5MG PER 1/2 TABLET PO SCH ×3 (09:03→20:46)
[2023-02-20] MEDS: MULTIVITAMINS/MINERALS THERAP 1 TAB PO SCH (09:03)
[2023-02-20] MEDS: CARVedilol 3.125 MG TAB PO SCH ×2 (09:04→20:46)
[2023-02-20] MEDS: MIRALAX *UNIT DOSE* 17GM PACKET PO SCH (09:04)
[2023-02-20] MEDS: amLODIPine 5 MG TAB PO SCH (09:04)
[2023-02-20 11:19] LABS: HEMOGLOBIN 12.2 g/dl (12.0-15.5); MEAN CORPUSCULAR HEMOGLOBIN 30.7 pg (27.0-33.0); MEAN CORPUSCULAR HGB CONC 32.1 g/dl (32.0-36.5); MEAN CORPUSCULAR VOLUME 95.5 fl (80.0-96.0); PLATELET COUNT, AUTOMATED 331 10^3/uL (150-450); RED BLOOD COUNT 3.98 10^6/uL (4.00-5.40); WHITE BLOOD COUNT 6.8 10^3/uL (4.0-10.0)
[2023-02-20 14:00] VITALS: BP 129/64; TEMP 97.3; O2SAT 93
[2023-02-20] MEDS: RIVAROXABAN 15MG TAB (XARELTO) PO SCH (17:58)
[2023-02-20 20:00] VITALS: BP 129/93; TEMP 97.9; O2SAT 94
[2023-02-20] MEDS: guaiFENesin ER TABLET 600 MG TAB PO PRN (20:45)
[2023-02-20] MEDS: SENNA 8.6 MG TAB (SENOKOT) PO SCH (20:45)
[2023-02-20] MEDS: SIMVASTATIN 40 MG TAB PO SCH (20:46)
[2023-02-20] MEDS: traZODone 50 MG TAB PO SCH (20:46)
[2023-02-21] MEDS: ACETAMINOPHEN TAB 650MG DOSE (2X325MG) PO SCH ×2 (05:14)
[2023-02-21 05:24] VITALS: BP 154/88; TEMP 97.7; O2SAT 92
[2023-02-21] MEDS: BACLOFEN 5MG PER 1/2 TABLET PO SCH (08:31)
[2023-02-21] MEDS: MULTIVITAMINS/MINERALS THERAP 1 TAB PO SCH (08:31)
[2023-02-21] MEDS: MIRALAX *UNIT DOSE* 17GM PACKET PO SCH (08:31)
[2023-02-21] MEDS: busPIRone 5 MG TAB PO SCH (08:31)
[2023-02-21] MEDS: SERTRALINE 100 MG TAB PO SCH (08:31)
[2023-02-21 08:32] VITALS: BP 138/74
[2023-02-21] MEDS: CARVedilol 3.125 MG TAB PO SCH (08:32)
[2023-02-21] MEDS: amLODIPine 5 MG TAB PO SCH (08:32)
[2023-02-21] MEDS ORDERED: BACL10TA2 PO (11:17)
[2023-02-21] MEDS ORDERED: XARE15TA PO (11:17)
[2023-02-21] MEDS ORDERED: CARV3.12 PO (11:17)
[2023-02-21 14:00] VITALS: BP 132/78; TEMP 97.2; O2SAT 94
[2023-02-21 20:00] VITALS: BP 102/57; TEMP 99; O2SAT 99
== END 2023-02-21 15:00 | disposition home health service (06) | DRG 560 ==
LOC: M PM&R 16:05
PROVIDERS: ADMIT Student in an Organized Health Care Education/Training Program; ATTEND Student in an Organized Health Care Education/Training Program
PROC: B246ZZZ Ultrasonography of Right and Left Heart (ICD-10-PCS; principal; 2023-02-13)
DX: S52.332D Displaced oblique fracture of shaft of left radius, subsequent encounter for closed fracture with routine healing (principal); K92.1 Melena; S52.222D Displaced transverse fracture of shaft of left ulna, subsequent encounter for closed fracture with routine healing; M25.552 Pain in left hip; I12.9 Hypertensive chronic kidney disease with stage 1 through stage 4 chronic kidney disease, or unspecified chronic kidney disease; E78.5 Hyperlipidemia, unspecified; I48.91 Unspecified atrial fibrillation; I25.10 Atherosclerotic heart disease of native coronary artery without angina pectoris; N18.30 Chronic kidney disease, stage 3 unspecified; M81.0 Age-related osteoporosis without current pathological fracture; F41.9 Anxiety disorder, unspecified; F32.A Depression, unspecified; D64.9 Anemia, unspecified; R29.6 Repeated falls; M19.90 Unspecified osteoarthritis, unspecified site; Z74.09 Other reduced mobility; Z74.1 Need for assistance with personal care; G89.11 Acute pain due to trauma; R09.02 Hypoxemia; K59.00 Constipation, unspecified; Z79.01 Long term (current) use of anticoagulants; Z79.899 Other long term (current) drug therapy; Z88.8 Allergy status to other drugs, medicaments and biological substances; Z95.5 Presence of coronary angioplasty implant and graft

== ENCOUNTER → 2023-03-07 | Outpatient (CLI) | payer MEDICARE, BC ==
[~2023-03-07] MED LIST changes: +BACL10TA2 PO; +CARV3.12 PO; +XARE15TA PO
== END ==
LOC: M SOG 07:51
PROVIDERS: ATTEND Physician Assistant
DX: S52.302D Unspecified fracture of shaft of left radius, subsequent encounter for closed fracture with routine healing (principal); M85.832 Other specified disorders of bone density and structure, left forearm; M19.032 Primary osteoarthritis, left wrist

== ENCOUNTER → 2023-03-14 | Outpatient (CLI) | payer MEDICARE, BC | LOC: M SOG 13:32 | PROVIDERS: ATTEND Orthopaedic Surgery Hand Surgery | DX: S52.302D Unspecified fracture of shaft of left radius, subsequent encounter for closed fracture with routine healing (principal) ==

== ENCOUNTER → 2023-04-04 | Outpatient (CLI) | payer MEDICARE, BC | LOC: M SOG 07:58 | PROVIDERS: ATTEND Physician Assistant | DX: Z53.9 Procedure and treatment not carried out, unspecified reason (principal) ==

== ENCOUNTER → 2023-04-20 | Outpatient (CLI) | payer MEDICARE, BC | LOC: M SOG 11:23 | PROVIDERS: ATTEND Physician Assistant | DX: S52.302D Unspecified fracture of shaft of left radius, subsequent encounter for closed fracture with routine healing (principal); M79.642 Pain in left hand; M19.032 Primary osteoarthritis, left wrist; S52.202D Unspecified fracture of shaft of left ulna, subsequent encounter for closed fracture with routine healing ==

== ENCOUNTER → 2023-07-26 | Outpatient (CLI) | payer MEDICARE, BC | LOC: M RAD 16:44 | PROVIDERS: ATTEND Physician Assistant Medical | DX: I51.7 Cardiomegaly (principal); R07.81 Pleurodynia; R05.1 Acute cough ==

== ENCOUNTER → 2023-08-09 | Outpatient (REF) | payer MEDICARE, BC ==
[2023-08-09 13:38] LABS: HEMATOCRIT 39.8 % (36.0-47.0); HEMOGLOBIN 14.2 g/dl (12.0-15.5); MEAN CORPUSCULAR HGB CONC 35.7 g/dl (32.0-36.5); MEAN CORPUSCULAR VOLUME 92.6 fl (80.0-96.0); PLATELET COUNT, AUTOMATED 265 10^3/uL (150-450); WHITE BLOOD COUNT 6.7 10^3/uL (4.0-10.0)
[2023-08-09 13:53] LABS: FREE T4 1.22 NG/DL (0.89-1.76); THYROID STIMULATING HORMONE 1.613 uIU/ML (0.55-4.78)
[2023-08-09 13:56] LABS: ALKALINE PHOSPHATASE 138 U/L (46-116); ALT/SGPT 10 U/L (7.0-40); AST/SGOT 18 U/L (<34); BILIRUBIN,TOTAL 0.5 MG/DL (0.3-1.2); BLOOD UREA NITROGEN 27 MG/DL (9-23); CALCIUM LEVEL 9.5 MG/DL (8.3-10.6); CARBON DIOXIDE LEVEL 29 MMOL/L (20-31); CHLORIDE LEVEL 105 MMOL/L (98-107); CREATININE FOR GFR 0.93 MG/DL (0.55-1.30); GLOMERULAR FILTRATION RATE > 60.0 (>32); GLUCOSE, FASTING 93 MG/DL (74-106); POTASSIUM SERUM 4.4 MMOL/L (3.5-5.1); SODIUM LEVEL 140 MMOL/L (136-145); TOTAL PROTEIN 6.5 G/DL (5.7-8.2)
== END ==
LOC: M SFHCADAM 10:48
PROVIDERS: ATTEND Family Medicine
DX: R63.4 Abnormal weight loss (principal); R07.9 Chest pain, unspecified; R06.00 Dyspnea, unspecified; R05.3 Chronic cough

== ENCOUNTER → 2023-08-10 | Outpatient (CLI) | payer MEDICARE, BC ==
[~2023-08-10] MED LIST changes: +ISOVUE-370 76% 100ML VIAL ONE
== END ==
LOC: M PLAIMG 08:01
PROVIDERS: ATTEND Family Medicine
DX: R63.4 Abnormal weight loss (principal); R07.9 Chest pain, unspecified; R06.00 Dyspnea, unspecified; R05.3 Chronic cough; I51.7 Cardiomegaly; I25.10 Atherosclerotic heart disease of native coronary artery without angina pectoris; I70.0 Atherosclerosis of aorta; J98.11 Atelectasis; R91.8 Other nonspecific abnormal finding of lung field
CPT/HCPCS: 71275; Q9967

== ENCOUNTER → 2023-09-18 | Outpatient (CLI) | payer MEDICARE, BC ==
[~2023-09-18] MED LIST changes: -ISOVUE-370 76% 100ML VIAL ONE
== END ==
LOC: M SOG 15:09
PROVIDERS: ATTEND Orthopaedic Surgery
DX: M54.2 Cervicalgia (principal); M85.89 Other specified disorders of bone density and structure, multiple sites; M47.812 Spondylosis without myelopathy or radiculopathy, cervical region

== ENCOUNTER 2023-11-03 09:00 | Observation (INO) | payer MEDICARE, BC ==
[~2023-11-03] VITALS: Ht 165.1 cm; Wt 46.0 kg
[2023-11-03] MEDS ORDERED: TRAZ-257 PO (09:16)
[2023-11-03 09:56] LABS: BASO % 0.4 % (0.0-1.0); EOS # 0.1 10^3/uL (0.0-0.5); EOS % 1.1 % (0.0-3.0); HEMATOCRIT 44.8 % (36.0-47.0); LYMPH % 18.3 % (24.0-44.0); MEAN CORPUSCULAR HEMOGLOBIN 32.1 pg (27.0-33.0); MEAN CORPUSCULAR HGB CONC 33.5 g/dl (32.0-36.5); MEAN CORPUSCULAR VOLUME 95.7 fl (80.0-96.0); MONO # 0.4 10^3/uL (0.0-0.8); MONO % 7.8 % (2.0-8.0); NEUTROPHILS # 3.8 10^3/uL (1.5-8.5); NEUTROPHILS % 71.7 % (36.0-66.0); PLATELET COUNT, AUTOMATED 165 10^3/uL (150-450); RED BLOOD COUNT 4.68 10^6/uL (4.00-5.40); WHITE BLOOD COUNT 5.4 10^3/uL (4.0-10.0)
[2023-11-03 10:25] LABS: CK-MB VALUE MASS 1.2 NG/ML (<3.6); CREATININE FOR GFR 1.07 MG/DL (0.55-1.30); GLOMERULAR FILTRATION RATE 52.5 (>32); MAGNESIUM LEVEL 2.2 MG/DL (1.8-2.4); POTASSIUM SERUM 4.4 MMOL/L (3.5-5.1); THYROID STIMULATING HORMONE 1.573 uIU/ML (0.55-4.78)
[2023-11-03 10:26] LABS: MB/CK RELATIVE INDEX 1.26 (< OR =4)
[2023-11-03 11:35] LABS: CK-MB VALUE MASS < 1.0 NG/ML (<3.6)
[2023-11-03] MEDS ORDERED: CARV3.12 PO (11:46)
[2023-11-03] MEDS ORDERED: SUPE600T4 PO (11:46)
[2023-11-03] MEDS ORDERED: SUPE5000 PO (11:46)
[2023-11-03] MEDS ORDERED: MULT-40 PO (11:46)
[2023-11-03] MEDS ORDERED: XARE15TA PO (11:46)
[2023-11-03 11:47] LABS: CPK CREATINE PHOSPHOKINASE 84 U/L (34-145); MB/CK RELATIVE INDEX 1.19 (< OR =4)
[2023-11-03] MEDS ORDERED: HOME MED LIST COMPLETE! XX SCH (11:50)
[2023-11-03] MEDS ORDERED: MOM 30ML SUSPENSION UDC PO PRN (16:05)
[2023-11-03] MEDS ORDERED: ACETAMINOPHEN TAB 650MG DOSE (2X325MG) PO PRN (16:05)
[2023-11-03] MEDS ORDERED: NITROGLYCERIN 0.4MG SUBL TABLET SL PRN (16:05)
[2023-11-03 18:30] VITALS: BP 138/71; TEMP 97.8; O2SAT 92
[2023-11-03 20:06] VITALS: BP 140/83; TEMP 97.2; O2SAT 95
[2023-11-03] MEDS: DOCUSATE SODIUM 100MG CAPSULE PO SCH (20:47)
[2023-11-03] MEDS: CARVedilol 3.125 MG TAB PO SCH (20:49)
[2023-11-03 23:18] VITALS: BP 143/92; TEMP 98.3; O2SAT 94
[2023-11-03] MEDS: traZODone 100 MG TAB PO PRN (23:51)
[2023-11-04] VITALS (12 sets, daily range): BP systolic 82–143; BP diastolic 60–86; TEMP 97.2–98.6; O2SAT 91–96
[2023-11-04 08:50] LABS: CALCIUM LEVEL 9.3 MG/DL (8.3-10.6); GLOMERULAR FILTRATION RATE 56.8 (>32); POTASSIUM SERUM 4.4 MMOL/L (3.5-5.1)
[2023-11-04] MEDS: SERTRALINE 100 MG TAB PO SCH (08:54)
[2023-11-04] MEDS: SIMVASTATIN 40 MG TAB PO SCH (08:54)
[2023-11-04] MEDS: amLODIPine 5 MG TAB PO SCH (08:55)
[2023-11-04 13:04] LABS: BILIRUBIN,DIRECT 0.2 MG/DL (<0.4); BILIRUBIN,TOTAL 0.6 MG/DL (0.3-1.2); TOTAL PROTEIN 5.8 G/DL (5.7-8.2)
[2023-11-04] MEDS: RIVAROXABAN 15MG TAB (XARELTO) PO SCH (18:10)
[2023-11-05] VITALS (7 sets, daily range): BP systolic 115–154; BP diastolic 55–84; TEMP 96.9–97.4; O2SAT 94–96
[2023-11-05 07:07] LABS: CALCIUM LEVEL 8.9 MG/DL (8.3-10.6); CREATININE FOR GFR 1.09 MG/DL (0.55-1.30); GLOMERULAR FILTRATION RATE 51.4 (>32); POTASSIUM SERUM 4.7 MMOL/L (3.5-5.1)
== END 2023-11-05 12:12 | disposition home or self-care (01) ==
LOC: EDBD 09:00 → M ED 09:00 → M ED INP 15:34 → M PCU 18:27
PROVIDERS: ADMIT Internal Medicine; ATTEND Internal Medicine
DX: I95.1 Orthostatic hypotension (principal); I12.9 Hypertensive chronic kidney disease with stage 1 through stage 4 chronic kidney disease, or unspecified chronic kidney disease; N18.31 Chronic kidney disease, stage 3a; M81.0 Age-related osteoporosis without current pathological fracture; E55.9 Vitamin D deficiency, unspecified; K57.92 Diverticulitis of intestine, part unspecified, without perforation or abscess without bleeding; Z79.899 Other long term (current) drug therapy; Z88.8 Allergy status to other drugs, medicaments and biological substances; I48.11 Longstanding persistent atrial fibrillation; E78.5 Hyperlipidemia, unspecified; I25.10 Atherosclerotic heart disease of native coronary artery without angina pectoris; F41.9 Anxiety disorder, unspecified; F32.A Depression, unspecified
CPT/HCPCS: 36415; 70450; 71045; 72125; 80048; 80076; 82550; 82553; 83735; 84443; 84484; 85025; 93005; 93041; 93306; 94760; 97161; 97530; 99285; G0378

== ENCOUNTER → 2023-11-20 | Outpatient (CLI) | payer MEDICARE, BC ==
[~2023-11-20] MED LIST changes: +MULT-40 PO; +SUPE5000 PO; +SUPE600T4 PO; +TRAZ-257 PO
== END ==
LOC: M RAD 15:38
PROVIDERS: ATTEND Family Medicine
DX: J90 Pleural effusion, not elsewhere classified (principal); I25.10 Atherosclerotic heart disease of native coronary artery without angina pectoris; R91.8 Other nonspecific abnormal finding of lung field

== ENCOUNTER → 2024-03-19 | Outpatient (CLI) | payer MEDICARE, BC | LOC: M PLAIMG 10:03 | PROVIDERS: ATTEND Family Medicine | DX: R51.9 Headache, unspecified (principal); Z79.01 Long term (current) use of anticoagulants; I67.82 Cerebral ischemia ==

== ENCOUNTER 2024-04-09 00:02 | Observation (INO) | payer MEDICARE, BC ==
[2024-04-09] VITALS (11 sets, daily range): BP systolic 112–148; BP diastolic 60–80; TEMP 97.4–98.8; O2SAT 93–96
[~2024-04-09] VITALS: Ht 165.1 cm; Wt 46.5 kg
[2024-04-09 01:15] LABS: BASO % 0.4 % (0.0-1.0); EOS % 0.4 % (0.0-3.0); HEMATOCRIT 40.9 % (36.0-47.0); HEMOGLOBIN 14.4 g/dl (12.0-15.5); LYMPH # 0.7 10^3/uL (1.5-5.0); MEAN CORPUSCULAR HGB CONC 35.2 g/dl (32.0-36.5); MEAN CORPUSCULAR VOLUME 96.5 fl (80.0-96.0); MONO # 0.3 10^3/uL (0.0-0.8); MONO % 5.8 % (2.0-8.0); NEUTROPHILS # 4.3 10^3/uL (1.5-8.5); PLATELET COUNT, AUTOMATED 147 10^3/uL (150-450); RED BLOOD COUNT 4.24 10^6/uL (4.00-5.40); WHITE BLOOD COUNT 5.3 10^3/uL (4.0-10.0)
[2024-04-09 02:54] LABS: CALCIUM LEVEL 9.2 MG/DL (8.3-10.6); CK-MB VALUE MASS 1.5 NG/ML (<3.6); CREATININE FOR GFR 0.97 MG/DL (0.55-1.30); GLOMERULAR FILTRATION RATE 58.8 (>32); MB/CK RELATIVE INDEX 1.59 (< OR =4); POTASSIUM SERUM 4.2 MMOL/L (3.5-5.1); THYROID STIMULATING HORMONE 0.797 uIU/ML (0.55-4.78)
[2024-04-09 04:11] LABS: CK-MB VALUE MASS 1.2 NG/ML (<3.6)
[2024-04-09 04:29] LABS: MB/CK RELATIVE INDEX 1.21 (< OR =4)
[2024-04-09] MEDS ORDERED: MAALOX 30 ML SUSP *UDC PO PRN (04:55)
[2024-04-09] MEDS: hydrALAZINE 20MG/ML 1ML VIAL IV ONE (04:56)
[2024-04-09] MEDS: ACETAMINOPHEN 325 MG TAB PO PRN (05:43)
[2024-04-09] MEDS ORDERED: TRAZ-257 PO (06:44)
[2024-04-09] MEDS ORDERED: HOME MED LIST COMPLETE! XX SCH (06:45)
[2024-04-09] MEDS ORDERED: traZODone 50 MG TAB PO PRN (07:10)
[2024-04-09] MEDS ORDERED: NITROGLYCERIN 0.4MG SUBL TABLET SL PRN (07:10)
[2024-04-09] MEDS: SERTRALINE 100 MG TAB PO SCH (09:34)
[2024-04-09] MEDS: CARVedilol 6.25 MG TAB PO SCH (09:35)
[2024-04-09] MEDS ORDERED: PILL CUTTER 1 EACH XX ONE (12:23)
[2024-04-09] MEDS: LOSARTAN 25 MG TAB PO SCH (12:25)
[2024-04-09] MEDS: ONDANSETRON 4MG TAB PO PRN (13:40)
[2024-04-09] MEDS: IBUPROFEN 800 MG TAB PO ONE (14:53)
[2024-04-09 15:17] LABS: TOTAL PROTEIN,RANDOM URINE 51.6 MG/DL (0.0-14.0)
[2024-04-09 15:22] LABS: CREATININE, URINE 37.2 MG/DL; CREATININE,RANDOM URINE 37.2 MG/DL; MAU/CREAT RATIO 602.1 MCG/MG (0.0-30.0)
[2024-04-09] MEDS: RIVAROXABAN 15MG TAB (XARELTO) PO SCH (18:26)
[2024-04-09] MEDS ORDERED: METOPROLOL TART 25 MG TABLET PO SCH (21:00)
[2024-04-10] VITALS (28 sets, daily range): BP systolic 118–165; BP diastolic 68–95; TEMP 97.4–98.6; O2SAT 80–97
[2024-04-10 06:37] LABS: HEMATOCRIT 36.7 % (36.0-47.0); HEMOGLOBIN 13.5 g/dl (12.0-15.5); MEAN CORPUSCULAR HEMOGLOBIN 35.4 pg (27.0-33.0); MEAN CORPUSCULAR VOLUME 96.3 fl (80.0-96.0); PLATELET COUNT, AUTOMATED 162 10^3/uL (150-450); RED BLOOD COUNT 3.81 10^6/uL (4.00-5.40); WHITE BLOOD COUNT 5.4 10^3/uL (4.0-10.0)
[2024-04-10 06:50] LABS: MEAN CORPUSCULAR HGB CONC 36.8 g/dl (32.0-36.5)
[2024-04-10 07:20] LABS: CALCIUM LEVEL 9.2 MG/DL (8.3-10.6); CREATININE FOR GFR 1.25 MG/DL (0.55-1.30); GLOMERULAR FILTRATION RATE 43.9 (>32); POTASSIUM SERUM 4.1 MMOL/L (3.5-5.1)
[2024-04-10] MEDS: SODIUM CHLORIDE 0.9% 250ML IV ONE (11:40)
[2024-04-11] VITALS (16 sets, daily range): BP systolic 146–188; BP diastolic 64–98; TEMP 97.6–98.8; O2SAT 94–97
[2024-04-11] MEDS ORDERED: ONDANSETRON 4MG TAB PO SCH
[2024-04-11] MEDS ORDERED: LOSARTAN 50MG TABLET PO SCH
[2024-04-11] MEDS: hydrALAZINE 20MG/ML 1ML VIAL IV ONE (05:01)
[2024-04-11] MEDS: ACETAMINOPHEN 500 MG TAB PO PRN (06:33)
[2024-04-11 08:00] LABS: BASO % 0.7 % (0.0-1.0); EOS # 0.1 10^3/uL (0.0-0.5); EOS % 1.6 % (0.0-3.0); HEMATOCRIT 41.1 % (36.0-47.0); HEMOGLOBIN 14.4 g/dl (12.0-15.5); MEAN CORPUSCULAR HEMOGLOBIN 32.6 pg (27.0-33.0); MONO # 0.6 10^3/uL (0.0-0.8); NEUTROPHILS # 2.6 10^3/uL (1.5-8.5); NEUTROPHILS % 59.7 % (36.0-66.0); PLATELET COUNT, AUTOMATED 160 10^3/uL (150-450); RED BLOOD COUNT 4.42 10^6/uL (4.00-5.40); WHITE BLOOD COUNT 4.3 10^3/uL (4.0-10.0)
[2024-04-11 08:17] LABS: ALBUMIN 3.5 G/DL (3.2-5.2); ALKALINE PHOSPHATASE 76 U/L (35-104); ALT/SGPT 13 U/L (7.0-40); AST/SGOT 22 U/L (<34); BILIRUBIN,TOTAL 0.8 MG/DL (0.3-1.2); BLOOD UREA NITROGEN 26 MG/DL (9-23); CALCIUM LEVEL 9.1 MG/DL (8.3-10.6); CARBON DIOXIDE LEVEL 28 MMOL/L (20-31); CHLORIDE LEVEL 107 MMOL/L (98-107); CREATININE FOR GFR 0.91 MG/DL (0.55-1.30); GLOMERULAR FILTRATION RATE > 60.0 (>32); GLUCOSE, FASTING 110 MG/DL (74-106); POTASSIUM SERUM 3.6 MMOL/L (3.5-5.1); SODIUM LEVEL 141 MMOL/L (136-145); TOTAL PROTEIN 6.4 G/DL (5.7-8.2)
[2024-04-11] MEDS: LOSARTAN 25 MG TAB PO SCH (08:40)
[2024-04-11] MEDS ORDERED: LOSA-527 PO (11:03)
[2024-04-11] MEDS: ONDANSETRON 4MG ORAL DISINTEGRATING TAB PO ONE (12:14)
[2024-04-11] MEDS: LOSARTAN 25 MG TAB PO ONE (12:14)
[2024-04-11] MEDS: IBUPROFEN 400MG TAB PO ONE (12:14)
[2024-04-11] MEDS: MECLIZINE 25 MG TABLET PO ONE (12:14)
[2024-04-11] MEDS ORDERED: LOSA50TA28 PO (13:40)
[2024-04-11] MEDS ORDERED: ONDA-282 PO (14:47)
== END 2024-04-11 15:50 | disposition home health service (06) ==
LOC: M ED 00:02 → EDBD 00:02 → M ED INP 00:03 → M PCU 17:06
PROVIDERS: ADMIT Student in an Organized Health Care Education/Training Program; ATTEND Student in an Organized Health Care Education/Training Program
DX: I95.1 Orthostatic hypotension (principal); I16.0 Hypertensive urgency; R51.9 Headache, unspecified; I48.11 Longstanding persistent atrial fibrillation; I12.9 Hypertensive chronic kidney disease with stage 1 through stage 4 chronic kidney disease, or unspecified chronic kidney disease; E78.5 Hyperlipidemia, unspecified; I25.10 Atherosclerotic heart disease of native coronary artery without angina pectoris; N18.31 Chronic kidney disease, stage 3a; K57.30 Diverticulosis of large intestine without perforation or abscess without bleeding; E55.9 Vitamin D deficiency, unspecified; M81.0 Age-related osteoporosis without current pathological fracture; F41.9 Anxiety disorder, unspecified; F32.A Depression, unspecified; Z79.899 Other long term (current) drug therapy; Z88.8 Allergy status to other drugs, medicaments and biological substances
CPT/HCPCS: 36415; 70450; 71045; 72125; 80048; 80053; 81001; 82043; 82550; 82553; 82570; 83605; 84156; 84443; 84484; 85025; 85027; 93005; 93041; 93306; 94760; 96374; 96375; 96376; 97116; 97161; 97165; 97530; 99285; G0378; J0360

== ENCOUNTER → 2024-04-11 | Outpatient (CLI) | payer MEDICARE, BC ==
[~2024-04-11] MED LIST changes: +LOSA-527 PO; +ONDA-282 PO
== END ==
LOC: M EKG 15:55
PROVIDERS: ATTEND Student in an Organized Health Care Education/Training Program
DX: R00.1 Bradycardia, unspecified (principal)

== ENCOUNTER 2024-05-15 06:26 | Emergency (ER) | payer MEDICARE, BC ==
[~2024-05-15] VITALS: Ht 165.1 cm; Wt 45.5 kg
[2024-05-15 09:05] VITALS: BP 183/85; TEMP 98.4; O2SAT 96
== END 2024-05-15 09:45 | disposition home or self-care (01) ==
LOC: EDBD 06:26 → M ED 06:26
DX: S22.32XA Fracture of one rib, left side, initial encounter for closed fracture (principal); W01.0XXA Fall on same level from slipping, tripping and stumbling without subsequent striking against object, initial encounter; Y92.009 Unspecified place in unspecified non-institutional (private) residence as the place of occurrence of the external cause; Y93.01 Activity, walking, marching and hiking; Y99.9 Unspecified external cause status; I48.91 Unspecified atrial fibrillation; I25.10 Atherosclerotic heart disease of native coronary artery without angina pectoris; I12.9 Hypertensive chronic kidney disease with stage 1 through stage 4 chronic kidney disease, or unspecified chronic kidney disease; E78.5 Hyperlipidemia, unspecified; K57.92 Diverticulitis of intestine, part unspecified, without perforation or abscess without bleeding; Z79.01 Long term (current) use of anticoagulants; Z79.899 Other long term (current) drug therapy; Z88.8 Allergy status to other drugs, medicaments and biological substances

== ENCOUNTER → 2024-07-19 | Outpatient (CLI) | payer MEDICARE, BC | LOC: M WUC 15:26 | PROVIDERS: ATTEND Family Medicine | DX: R06.2 Wheezing (principal) ==

== ENCOUNTER → 2024-07-24 | Outpatient (CLI) | payer MEDICARE, BC ==
[2024-07-24 17:28] LABS: ALBUMIN 3.7 G/DL (3.2-5.2); CALCIUM LEVEL 9.6 MG/DL (8.3-10.6); CHOLESTEROL RISK RATIO 3.14 (<5); CREATININE FOR GFR 1.1 MG/DL (0.55-1.30); GLOMERULAR FILTRATION RATE 50.7 (>32); HDL CHOLESTEROL 69.9 MG/DL (>40); LDL CHOLESTEROL 129.5 MG/DL (<100); MAGNESIUM LEVEL 2.1 MG/DL (1.8-2.4); NON-HDL-C 150.1 MG/DL; POTASSIUM SERUM 4.6 MMOL/L (3.5-5.1)
[2024-07-24 17:30] LABS: THYROID STIMULATING HORMONE 2.061 uIU/ML (0.55-4.78)
[2024-07-24 17:31] LABS: FREE T4 1.16 NG/DL (0.89-1.76)
[2024-07-24 18:23] LABS: HEMATOCRIT 44.6 % (36.0-47.0); HEMOGLOBIN 14.3 g/dl (12.0-15.5); MEAN CORPUSCULAR HEMOGLOBIN 30.1 pg (27.0-33.0); MEAN CORPUSCULAR HGB CONC 32.1 g/dl (32.0-36.5); MEAN CORPUSCULAR VOLUME 93.9 fl (80.0-96.0); PLATELET COUNT, AUTOMATED 225 10^3/uL (150-450); RED BLOOD COUNT 4.75 10^6/uL (4.00-5.40); WHITE BLOOD COUNT 8.7 10^3/uL (4.0-10.0)
== END ==
LOC: M WUC 15:34
PROVIDERS: ATTEND Family Medicine
DX: I48.0 Paroxysmal atrial fibrillation (principal); R51.9 Headache, unspecified; E78.5 Hyperlipidemia, unspecified

== ENCOUNTER 2024-09-16 10:51 | Emergency (ER) | payer MEDICARE, BC ==
[~2024-09-16] VITALS: Ht 165.1 cm; Wt 47.7 kg
[2024-09-16 11:44] LABS: BASO % 0.4 % (0.0-1.0); EOS # 0.1 10^3/uL (0.0-0.5); EOS % 1.5 % (0.0-3.0); HEMATOCRIT 35.6 % (36.0-47.0); HEMOGLOBIN 11.7 g/dl (12.0-15.5); LYMPH # 1.4 10^3/uL (1.5-5.0); LYMPH % 24.9 % (24.0-44.0); MEAN CORPUSCULAR HEMOGLOBIN 31.5 pg (27.0-33.0); MEAN CORPUSCULAR HGB CONC 32.9 g/dl (32.0-36.5); MONO # 0.8 10^3/uL (0.0-0.8); MONO % 15.3 % (2.0-8.0); NEUTROPHILS # 3.2 10^3/uL (1.5-8.5); NEUTROPHILS % 57.7 % (36.0-66.0); PLATELET COUNT, AUTOMATED 182 10^3/uL (150-450); RED BLOOD COUNT 3.71 10^6/uL (4.00-5.40); WHITE BLOOD COUNT 5.5 10^3/uL (4.0-10.0)
[2024-09-16 12:10] LABS: LIPASE 65 U/L (12-53)
[2024-09-16 12:12] LABS: CK-MB VALUE MASS 1.1 NG/ML (<3.6)
[2024-09-16 12:13] LABS: ALBUMIN 3.7 G/DL (3.2-5.2); ALKALINE PHOSPHATASE 108 U/L (35-104); ALT/SGPT 11 U/L (7.0-40); AST/SGOT 25 U/L (<34); BILIRUBIN,DIRECT < 0.1 MG/DL (<0.4); BILIRUBIN,TOTAL 0.4 MG/DL (0.3-1.2); BLOOD UREA NITROGEN 32 MG/DL (9-23); CALCIUM LEVEL 9.1 MG/DL (8.3-10.6); CARBON DIOXIDE LEVEL 33 MMOL/L (20-31); CHLORIDE LEVEL 103 MMOL/L (98-107); CREATININE FOR GFR 1.08 MG/DL (0.55-1.30); GLOMERULAR FILTRATION RATE 51.6 (>32); GLUCOSE, FASTING 74 MG/DL (74-106); SODIUM LEVEL 144 MMOL/L (136-145); TOTAL PROTEIN 6.8 G/DL (5.7-8.2)
[2024-09-16 12:15] LABS: CPK CREATINE PHOSPHOKINASE 99 U/L (34-145); MB/CK RELATIVE INDEX 1.11 (< OR =4)
[2024-09-16] MEDS ORDERED: ISOVUE-370 76% 100ML VIAL As Ordered ONE (12:29)
[2024-09-16 13:29] VITALS: BP 156/81; TEMP 98.3; O2SAT 96
[2024-09-16 14:15] LABS: MB/CK RELATIVE INDEX 1.14 (< OR =4)
== END 2024-09-16 14:44 | disposition home or self-care (01) ==
LOC: M ED 10:51
DX: R10.13 Epigastric pain (principal); W06.XXXA Fall from bed, initial encounter; I48.91 Unspecified atrial fibrillation; I25.10 Atherosclerotic heart disease of native coronary artery without angina pectoris; N18.9 Chronic kidney disease, unspecified; E55.9 Vitamin D deficiency, unspecified; M85.88 Other specified disorders of bone density and structure, other site; R91.8 Other nonspecific abnormal finding of lung field; F32.A Depression, unspecified; Z86.73 Personal history of transient ischemic attack (TIA), and cerebral infarction without residual deficits; Z87.891 Personal history of nicotine dependence; Z79.01 Long term (current) use of anticoagulants; Z79.899 Other long term (current) drug therapy; Z88.8 Allergy status to other drugs, medicaments and biological substances
CPT/HCPCS: 70450; 71046; 72125; 74177; 80048; 80076; 82550; 82553; 83690; 84484; 85025; 93005; 93041; 94760; 99285; Q9967

== ENCOUNTER → 2024-11-13 | Outpatient (REF) | payer MEDICARE, BC ==
[2024-11-13 18:21] LABS: ALT/SGPT 12.0 U/L (7.0-40); AST/SGOT 27.0 U/L (<34); CALCIUM LEVEL 9.0 MG/DL (8.3-10.6); CARBON DIOXIDE LEVEL 30.0 MMOL/L (20-31); CHLORIDE LEVEL 102.0 MMOL/L (98-107); CHOLESTEROL LEVEL 231.0 MG/DL (<200); CHOLESTEROL RISK RATIO 2.9 (<5); CREATININE FOR GFR 1.26 MG/DL (0.55-1.30); GLOMERULAR FILTRATION RATE 42.9 (>32); LDL CHOLESTEROL 132.1 MG/DL (<100); MAGNESIUM LEVEL 2.1 MG/DL (1.8-2.4); NON-HDL-C 151.5 MG/DL; POTASSIUM SERUM 4.1 MMOL/L (3.5-5.1); SODIUM LEVEL 145.0 MMOL/L (136-145); TRIGLYCERIDES LEVEL 97.0 MG/DL (<150)
[2024-11-13 18:31] LABS: ESTIMATED AVERAGE GLUCOSE 100.0 MG/DL (60-110)
[2024-11-13 19:00] LABS: PLATELET COUNT, AUTOMATED 184 10^3/uL (150-450)
== END ==
LOC: M SFHCADAM 13:52
PROVIDERS: ATTEND Family Medicine
DX: L98.1 Factitial dermatitis (principal); Z79.01 Long term (current) use of anticoagulants; N18.32 Chronic kidney disease, stage 3b; I48.0 Paroxysmal atrial fibrillation; E78.5 Hyperlipidemia, unspecified; R73.9 Hyperglycemia, unspecified

== ENCOUNTER 2025-01-28 17:36 | Emergency (ER) | payer MEDICARE, BC ==
[~2025-01-28] VITALS: Ht 165.1 cm; Wt 47.4 kg
[2025-01-28 20:05] VITALS: BP 136/75; TEMP 97.4; O2SAT 97
== END 2025-01-28 21:26 | disposition left against medical advice (07) ==
LOC: M ED 17:36
DX: Z53.21 Procedure and treatment not carried out due to patient leaving prior to being seen by health care provider (principal)